=== PATIENT | male | born 1955 | race Caucasian/White ===

== ENCOUNTER → 2022-12-06 | Outpatient (CLI) | payer MEDICARE | LOC: MRI 08:20 | PROVIDERS: ATTEND Internal Medicine | DX: M54.2 Cervicalgia (principal); R27.0 Ataxia, unspecified | CPT/HCPCS: 70450; 72141 ==

== ENCOUNTER 2022-12-28 05:28 | Observation (INO) | payer MEDICARE ==
[2022-12-26 09:32] LABS: BASOPHILS % 0.4 % (0.0-1.0); EOSINOPHILS # (AUTO) 0.2 (0.0-0.4); EOSINOPHILS % 2.2 % (0.0-6.0); HEMATOCRIT 46.7 % (38.2-49.6); HEMOGLOBIN 14.7 g/dL (14.0-18.0); LYMPHOCYTES # (AUTO) 2.3 (1.0-3.2); LYMPHOCYTES % 29.9 % (18.0-39.1); MEAN CORPUSCULAR HEMOGLOBIN 29.3 pg (28-32); MEAN CORPUSCULAR HGB CONC 31.5 g/dL (31-35); MEAN CORPUSCULAR VOLUME 93.2 fL (81-99); MONOCYTES # (AUTO) 0.7 (0.2-0.8); MONOCYTES % 9.1 % (4.4-11.3); NEUTROPHILS # (AUTO) 4.4 (2.1-6.9); NEUTROPHILS % 58.1 % (38.7-80.0); PLATELET COUNT 243 x10e3/uL (140-360); RED BLOOD COUNT 5.01 x10e6/uL (4.3-5.7); RED CELL DISTRIBUTION WIDTH 13.5 % (11.7-14.4)
[2022-12-26 09:56] LABS: INR 0.91; PROTHROMBIN TIME 12.5 seconds (11.9-14.5)
[2022-12-26 09:57] LABS: ANION GAP 12.8 mmol/L (8-16); BLOOD UREA NITROGEN 16 mg/dL (7-26); BUN/CREATININE RATIO 16 (6-25); CALCIUM 9.9 mg/dL (8.4-10.2); CARBON DIOXIDE 28 mmol/L (22-29); CHLORIDE 105 mmol/L (98-107); CREATININE, SERUM 1.01 mg/dL (0.72-1.25); GLUCOSE 99 mg/dL (74-118); PARTIAL THROMBOPLASTIN TIME 41.7 seconds (23.8-35.5); POTASSIUM 4.8 mmol/L (3.5-5.1); SODIUM 141 mmol/L (136-145)
[~2022-12-28] VITALS: Ht 185.4 cm; Wt 88.5 kg
[2022-12-28] VITALS (7 sets, daily range): BP systolic 126–136; BP diastolic 72–76
[~2022-12-28 05:28] MED LIST: ATORVASTATIN CA20 MG PO; AZOR 5-20 MG T1 EACH PO; CLOPIDOGREL75 MG PO
[2022-12-28] MEDS ORDERED: CEFAZOLIN SODIUM 2 GM ONE (06:30)
[2022-12-28] MEDS ORDERED: LIDOCAINE HCL/EPINEPHRINE/PF 10 ML VIAL ONE (06:32)
[2022-12-28] MEDS ORDERED: Vancomycin IV 1 GM VIAL ONE (06:32)
[2022-12-28] MEDS ORDERED: THROMBIN FOR SOLN 5,000 UNIT VIAL ONE (06:33)
[2022-12-28] MEDS ORDERED: HEPARIN SOD/SOD CHLORIDE 0 ML ONE (07:20)
[2022-12-28] MEDS ORDERED: HYDROCODON-ACE1 EA12 PO (09:23)
[2022-12-28] MEDS ORDERED: ACETAMINOPHEN 325 MG TAB PO PRN ×2 (09:30)
[2022-12-28] MEDS ORDERED: Morphine 10mg syringe 10 MG/ML INJ IM PRN (09:30)
[2022-12-28] MEDS ORDERED: HYDROMORPHONE 2MG/ML 2 MG/ML ML IV PRN (09:30)
[2022-12-28] MEDS ORDERED: OXYCODONE/ACETAMINOPHEN 5-325 1 EACH TABLET PO PRN (09:30)
[2022-12-28] MEDS ORDERED: CEPACOL SORE THROAT LOZENGES PO PRN (09:30)
[2022-12-28] MEDS ORDERED: PROMETHAZINE HCL (IM) 25 MG/ML VIAL IM PRN ×2 (09:30)
[2022-12-28] MEDS ORDERED: CARISOPRODOL 350 MG TAB PO PRN (09:30)
[2022-12-28] MEDS ORDERED: MAGNESIUM/ALUMINUM/SIMETHICONE 30 ML UDC PO PRN ×2 (09:30)
[2022-12-28] MEDS ORDERED: MORPHINE SULFATE 5 MG/ML VIAL IM PRN (09:30)
[2022-12-28] MEDS ORDERED: ZOLPIDEM TARTRATE 5 MG TAB PO PRN ×2 (09:30)
[2022-12-28] MEDS ORDERED: ONDANSETRON HCL INJ 2MG/ML 2ML 2 MG/ML VIAL IV PRN (09:30)
[2022-12-28] MEDS ORDERED: LACTATED RINGER'S 1,000 ML IV SCH (09:30)
[2022-12-28] MEDS ORDERED: FENTANYL CITRATE/PF 100MCG/2 ML INJ ONE ×2 (09:42→13:22)
[2022-12-28] MEDS: LACTATED RINGER'S 1,000 ML IV SCH ×2 (10:30→17:50)
[2022-12-28] MEDS: OXYCODONE/ACETAMINOPHEN 5-325 1 EACH TABLET PO PRN ×2 (11:38→17:07)
[2022-12-28] MEDS: CARISOPRODOL 350 MG TAB PO PRN ×2 (11:38→17:07)
[2022-12-28] MEDS ORDERED: POVIDONE IODINE 0.05% 0.05 % ML PO ONE (12:50)
[2022-12-28] MEDS ORDERED: SUCCINYLCHOLINE CHLORIDE 20 MG/ML 10ML VIAL ONE (12:50)
[2022-12-28] MEDS ORDERED: ONDANSETRON HCL INJ 2MG/ML 2ML 2 MG/ML VIAL ONE (12:50)
[2022-12-28] MEDS ORDERED: DEXAMETHASONE SOD PHOS INJ 4 MG/ML SDV ONE (12:50)
[2022-12-28] MEDS ORDERED: LIDOCAINE HCL 2% LOCAL INJ 5 ML SDV VIAL INJ ONE (12:50)
[2022-12-28] MEDS ORDERED: SEVOFLURANE INHAL SOLN 250 ML PEN BTL ONE (12:50)
[2022-12-28] MEDS ORDERED: ROCURONIUM BROMIDE 10 MG/ML 5ML VIAL IV ONE (12:50)
[2022-12-28] MEDS ORDERED: PROPOFOL IV EMULSION 10 MG/ML 20 ML VIAL ONE (12:50)
[2022-12-28] MEDS ORDERED: GLYCOPYRROLATE INJ 0.2 MG/ML VIAL ONE (12:50)
[2022-12-28] MEDS ORDERED: NEOSTIGMINE 1 MG/ML 10ML VIAL ONE (12:50)
[2022-12-28] MEDS ORDERED: KETOROLAC TROMETHAMINE 30 MG/ML VIAL ONE (12:50)
[2022-12-28] MEDS ORDERED: KETAMINE HCL INJ 50 MG/ML 10 ML VIAL ONE (13:22)
[2022-12-28] MEDS: HYDROMORPHONE 2MG/ML 2 MG/ML ML IV PRN (20:42)
[2022-12-28] MEDS: ONDANSETRON HCL INJ 2MG/ML 2ML 2 MG/ML VIAL IV PRN (20:42)
[2022-12-28] MEDS ORDERED: ATORVASTATIN 40 MG TAB PO SCH (21:00)
[2022-12-29] VITALS: BP 139/84
[2022-12-29] MEDS: ONDANSETRON HCL INJ 2MG/ML 2ML 2 MG/ML VIAL IV PRN ×2 (00:45→06:21)
[2022-12-29] MEDS: HYDROMORPHONE 2MG/ML 2 MG/ML ML IV PRN ×2 (00:45→06:21)
[2022-12-29] MEDS: LACTATED RINGER'S 1,000 ML IV SCH (02:48)
[2022-12-29 04:00] VITALS: BP 98/51
[2022-12-29 08:00] VITALS: BP 106/68
[2022-12-29 08:46] VITALS: BP 106/68
[2022-12-29] MEDS ORDERED: OLMESARTAN 20 MG TAB PO SCH (09:00)
[2022-12-29] MEDS ORDERED: AMLODIPINE BESYLATE 5 MG TAB PO SCH (09:00)
[2022-12-29] MEDS ORDERED: NON-FORMULARY MEDICATION (Amlodipine Bes/Olmesartan Med (Azor 5-20 Mg Tablet) 1 TAB) PO SCH (09:00)
== END 2022-12-29 09:21 | disposition home or self-care (01) ==
LOC: OR 05:28 → PACU V 09:22 → MED/SURG 10:06
PROVIDERS: ADMIT Neurological Surgery; ATTEND Neurological Surgery
DX: M50.01 Cervical disc disorder with myelopathy, high cervical region (principal); Z01.818 Encounter for other preprocedural examination; Z20.822 Contact with and (suspected) exposure to COVID-19; Z86.73 Personal history of transient ischemic attack (TIA), and cerebral infarction without residual deficits; Z79.899 Other long term (current) drug therapy
CPT/HCPCS: 0223U; 20931; 22551; 22845; 36415; 71046; 72040; 76000; 80048; 85025; 85610; 85730; 86850; 86900; 88304; 88311; 93005; C1713 ×3; G0378 ×2; J0330; J0690 ×2; J1100; J1170 ×2; J1885; J2001; J2405 ×2; J2704; J2710; J3010; J3370; J7121

== ENCOUNTER → 2023-01-25 | Outpatient (CLI) | payer MEDICARE ==
[~2023-01-25] MED LIST changes: +HYDROCODON-ACE1 EA12 PO
== END ==
LOC: RAD 11:45
PROVIDERS: ATTEND Neurological Surgery
DX: M50.20 Other cervical disc displacement, unspecified cervical region (principal); M43.22 Fusion of spine, cervical region
CPT/HCPCS: 72050

== ENCOUNTER → 2025-07-16 | Day surgery (SDC) | payer MEDICARE ==
[2025-07-13 13:00] LABS: BASOPHILS % 0.4 % (0.0-1.0); EOSINOPHILS % 2.7 % (0.0-6.0); LYMPHOCYTES % 23.4 % (18.0-39.1); MONOCYTES % 8.5 % (4.4-11.3); NEUTROPHILS % 64.5 % (38.7-80.0); RED CELL DISTRIBUTION WIDTH 12.8 % (11.7-14.4)
[~2025-07-16] MED LIST changes: +AMLODIPINE BESY10 MG PO; +DESVENLAFAXINE50 M1 PO; +FENTANYL CITRATE/PF 100MCG/2 ML INJ ONE; +HYOSCYAMINE SULFATE 0.5 MG/ML INJ ONE; +IBUPROFEN200 MG PO; +LIDOCAINE HCL 2% LOCAL INJ 5 ML SDV VIAL INJ ONE; +MULTIVITAMIN1 EACH PO; +ONDANSETRON HCL INJ 2MG/ML 2ML 2 MG/ML VIAL ONE; +PERCOCET 10-321 EACH PO; +PROPOFOL IV EMULSION 50 ML IV ONE; +ROSUVASTATIN CA20 MG PO; +VITAMIN C PO
[2025-07-16 15:35] VITALS: TEMP 97.7
[2025-07-16 15:55] VITALS: BP 116/70; PULSE 64; RESP 18; O2SAT 99
== END | disposition home or self-care (01) ==
LOC: OR 12:20
PROVIDERS: ATTEND Internal Medicine Gastroenterology
DX: Z12.11 Encounter for screening for malignant neoplasm of colon (principal); D12.0 Benign neoplasm of cecum; K62.1 Rectal polyp; K57.30 Diverticulosis of large intestine without perforation or abscess without bleeding; K64.8 Other hemorrhoids; I10 Essential (primary) hypertension; E78.00 Pure hypercholesterolemia, unspecified; Z01.810 Encounter for preprocedural cardiovascular examination; Z01.812 Encounter for preprocedural laboratory examination; Z79.1 Long term (current) use of non-steroidal anti-inflammatories (NSAID); Z79.899 Other long term (current) drug therapy; Z68.24 Body mass index [BMI] 24.0-24.9, adult; Z86.73 Personal history of transient ischemic attack (TIA), and cerebral infarction without residual deficits
CPT/HCPCS: 36415; 45385; 85025; 88305; 93005; J1980; J2003; J2405; J2704; J3010

== ENCOUNTER 2025-08-21 14:12 | Emergency (ER) | payer MEDICARE ==
[~2025-08-21] VITALS: Ht 185.4 cm; Wt 88.5 kg
[~2025-08-21 14:12] MED LIST changes: -FENTANYL CITRATE/PF 100MCG/2 ML INJ ONE; -HYOSCYAMINE SULFATE 0.5 MG/ML INJ ONE; -LIDOCAINE HCL 2% LOCAL INJ 5 ML SDV VIAL INJ ONE; -ONDANSETRON HCL INJ 2MG/ML 2ML 2 MG/ML VIAL ONE; -PROPOFOL IV EMULSION 50 ML IV ONE
[2025-08-21 14:21] VITALS: TEMP 98.6
[2025-08-21] MEDS ORDERED: SODIUM CHLORIDE FLUSH 10 ML SYR IV PRN (14:45)
[2025-08-21 15:03] LABS: BASOPHILS % 0.3 % (0.0-1.0); EOSINOPHILS % 1.9 % (0.0-6.0); LYMPHOCYTES % 26.9 % (18.0-39.1); MONOCYTES % 7.6 % (4.4-11.3); NEUTROPHILS % 63.0 % (38.7-80.0); RED CELL DISTRIBUTION WIDTH 12.8 % (11.7-14.4)
[2025-08-21 15:15] LABS: INR 0.97
[2025-08-21 15:24] LABS: EST GLOMERULAR FILTRATION RATE 71.0 ML/MIN (>=60)
[2025-08-21] MEDS: SODIUM CHLORIDE 0.9% 1000ML 1,000 ML IV ONE (15:42)
[2025-08-21 18:15] VITALS: PULSE 71; RESP 14; O2SAT 99
[2025-08-21 18:54] LABS: LEUKOCYTE ESTERASE ,URINE NEGATIVE (NEGATIVE); PROTEIN,URINE DIPSTICK 1+ (NEGATIVE)
[2025-08-21 18:55] LABS: URINE UROBILINOGEN 0.2 mg/dL (0.2 - 1)
[2025-08-21 19:02] LABS: WBC,URINE (MAN) 0-5 /HPF (0-5)
== END 2025-08-21 18:42 | disposition short-term general hospital (02) ==
LOC: ER 14:31
DX: R53.1 Weakness (principal); R22.0 Localized swelling, mass and lump, head; G93.2 Benign intracranial hypertension; I10 Essential (primary) hypertension; E78.5 Hyperlipidemia, unspecified; I25.10 Atherosclerotic heart disease of native coronary artery without angina pectoris; I69.354 Hemiplegia and hemiparesis following cerebral infarction affecting left non-dominant side; Z96.652 Presence of left artificial knee joint
CPT/HCPCS: 36415; 70450; 71045; 80053; 81001; 83880; 84484; 85025; 85610; 85730; 93005; 94760; 99284; J7030